=== PATIENT | male | born 1995 | race American Indian/Alaskan Native ===

== ENCOUNTER 2019-09-09 21:02 | Emergency (ER) | payer OTHER ==
[2019-09-09 21:21] VITALS: BP 109/61
[2019-09-10] MEDS ORDERED: CYCLOBENZAPRINE 10 MG TAB PO ONE (01:34)
[2019-09-10] MEDS ORDERED: ACETAMINOPHEN 500 MG TAB PO ONE (01:34)
[2019-09-10 02:08] LABS: Basophils % (Auto) 0.2 % (0.0-1.8); Eosinophils % (Auto) 0.6 % (0.0-4.3); Hematocrit 38.7 % (35.5-45.6); Hemoglobin 12.8 gm/dl (11.8-15.2); Lymphocytes # (Auto) 0.7 K/mm3 (1.2-5.4); Lymphocytes % (Auto) 10.5 % (13.4-35.0); Mean Corpuscular HGB Conc 33 % (32-34); Mean Corpuscular Volume 84 fl (84-94); Monocytes # (Auto) 0.5 K/mm3 (0.0-0.8); Monocytes % (Auto) 7.5 % (0.0-7.3); Platelet Count 177 K/mm3 (140-440); Red Cell Distribution Width 14.2 % (13.2-15.2)
[2019-09-10 02:25] LABS: Alanine Aminotransferase 13 units/L (7-56); Albumin 4.2 g/dL (3.9-5); BUN/Creatinine Ratio 11; Blood Urea Nitrogen 11 mg/dL (9-20); Calcium 8.8 mg/dL (8.4-10.2); Hemolysis Index 5
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
== END 2019-09-10 04:15 | disposition home or self-care (01) ==
LOC: ED 21:02
DX: S39.011A Strain of muscle, fascia and tendon of abdomen, initial encounter (principal); M62.830 Muscle spasm of back; Z90.49 Acquired absence of other specified parts of digestive tract; Z79.1 Long term (current) use of non-steroidal anti-inflammatories (NSAID); Z79.899 Other long term (current) drug therapy; V49.49XA Driver injured in collision with other motor vehicles in traffic accident, initial encounter; Y93.89 Activity, other specified; Y92.89 Other specified places as the place of occurrence of the external cause; Y99.8 Other external cause status
CPT/HCPCS: 36415; 74177; 80053; 83690; 85025; 99284; Q9967